=== PATIENT | female | born 1950 | race Caucasian/White ===

== ENCOUNTER 2021-01-14 07:18 | Day surgery (SDC) | payer MEDICARE ==
[2021-01-09 13:23] VITALS: BMI 33.9
[2021-01-14 07:52] VITALS: TEMP 97.7
[2021-01-14] MEDS ORDERED: LACTATED RINGERS 1,000 ML IV SCH (07:52)
[2021-01-14] MEDS ORDERED: LIDOCAINE 1% (10MG/ML) FOR IV START INTRADERMA PRN (07:52)
[2021-01-14 08:02] LABS: Glucose,Whole Blood 137 mg/dL (75-99)
[2021-01-14] MEDS ORDERED: LIDOCAINE 1% INJ 10MG/ML (20 ML MDV) ONE (08:25)
[2021-01-14] MEDS ORDERED: PROPOFOL 10 MG/ML 20 ML VIAL IV ONE (08:25)
--- NOTE | 2021-01-14 08:44 | P.PCN ---
Date of Procedure: 01/14/21 Procedure(s) Performed: BRIEF HISTORY: Patient is a 70-year-old, pleasant, white white female scheduled for an upper endoscopy as a part of evaluation of iron deficiency anemia.. Last colonoscopy was in 2019 at [facility] in [place] area was normal. The patient PROCEDURE PERFORMED: Esophagogastroduodenoscopy with biopsy and argon plasma coagulation. PREOPERATIVE DIAGNOSIS: Iron deficiency anemia negative colonoscopy 2 years. IV sedation per anesthesia. PROCEDURE: After informed consent was obtained, the patient was brought into the endoscopy unit. IV sedation was administered by Anesthesia under continuous monitoring. Initially the Olympus GIF-140 video endoscope was inserted into the mouth. Esophagus intubated without any difficulty. It was gradually advanced into the stomach and duodenum and carefully examined. The bulb and the second part of the duodenum appeared normal. Biopsies were done from the duodenum to rule out celiac disease. The scope at this time was withdrawn to the stomach, adequately insufflated with air, and upon careful examination, mucosa of the ant rum had linear areas of telangiectasia with active oozing consistent with gastric antral vascular ectasia. At this argon plasma coagulation was performed and most of the telangiectasia were coagulated with good hemostasis. Rest of the, body, cardia and the fundus appeared normal.there a few telangiectasia noted in the fundus of the stomach that was also coagulated with argon plasma. The scope was then withdrawn into the esophagus. The GE junction was located at 39 cm from the incisors. small hiatal hernia noted. The esophagus appeared normal. There were no erosions or ulcerations seen and the patient tolerated the procedure well. IMPRESSION: 1. Gastric antral vascular ectasia with oozing status post argon plasma coagulation as described above. 2. Small hiatal hernia. RECOMMENDATIONS: The findings of this examination were discussed with the patient as well as her family. She was advised to follow with the biopsy results. She will start on iron supplements daily. Monitor CBC periodically and she'll be seen in office in 4-6 weeks. Will consider repeat EGD with APC if she has recurrent anemia in the future..
[2021-01-14] MEDS ORDERED: IV FLUID CONTINUATION 750 ML IV ONE (08:46)
[2021-01-14 09:10] VITALS: BP 142/92; PULSE 61; RESP 20
== END 2021-01-14 09:20 | disposition home or self-care (01) ==
LOC: ORWHC2ENDO 07:18
PROVIDERS: ATTEND Internal Medicine Gastroenterology
DX: D50.9 Iron deficiency anemia, unspecified (principal); K44.9 Diaphragmatic hernia without obstruction or gangrene; K31.811 Angiodysplasia of stomach and duodenum with bleeding; I11.0 Hypertensive heart disease with heart failure; I50.9 Heart failure, unspecified; E78.5 Hyperlipidemia, unspecified; E11.9 Type 2 diabetes mellitus without complications; F41.9 Anxiety disorder, unspecified; F32.9 Major depressive disorder, single episode, unspecified; K21.9 Gastro-esophageal reflux disease without esophagitis; Z79.899 Other long term (current) drug therapy; Z79.4 Long term (current) use of insulin; Z91.048 Other nonmedicinal substance allergy status
CPT/HCPCS: 88305; 43239; 43255; J2001; J2704

== ENCOUNTER → 2021-12-15 | Outpatient (CLI) | payer MEDICARE ==
--- NOTE | 2021-12-15 14:57 | P.SLEEP ---
History of Present Illness H&P Date: 12/15/21 This is a pleasant 71-year-old female patient was referred to me for evaluation of sleep apnea. This patient has noted to be excessively sleepy and she's been sleeping several hours and a daily basis. For instance, on a 24-hour period, the patient is sleeping somewhat between 12 and 16 hours. This was quite concerning and the patient was referred to me for sleep apnea evaluation. Note that the patient has multiple medical problems and comorbidities which obviously could contribute to her being somnolent and sleepy. Nevertheless, she also has features to suggest obstructive sleep apnea. She is obese and she cares a BMI of 37.7. She has loud snoring, and she has been told to stop breathing at night. She has excessive daytime fatigue and sleepiness. At times, she wakes up choking and gasping for air. She also has occasional nighttime heartburn. The patient is going to bed at around 6:30 PM and she's getting out of bed at around 5:30 AM. During the day, she is taking naps several of them and those ranged between 20 and 30 minutes. It takes a few minutes to fall asleep. She has no difficulties in sleep initiation. She wakes up at least 4-5 times in the middle of the night to use the bathroom. She prefers to sleep on her side. Shehas no sleep paralysis, no hallucinations, no cataplexy. She watches television in her bedroom. She drinks one cup of coffee in the morning. No alcoholism. Her weight has remained stable over the years without any significant recent weight gain or weight loss. Note that the patient was recently hospitalized to [facility] with severe anemia. She was found to have iron deficiency and GI bleeding. She was given IV iron and currently she is on oral iron supplements. She has no significant acidosis and lower extremities. No numbness or tingling involving the lower extremities. She has fatigue and she feels tired at all times. She has exertional dyspnea. No angina. No palpitations. No cardiac arrhythmias. No history of any CVA. No personal history of obstructive sleep apnea. She is legally blind and she is not driving and she is living with her . Review of Systems Constitutional: Reports daytime sleepiness, Reports fatigue Eyes: right blurred vision, right decreased vision, right loss of vision, denies bulging eye Ears: deny: decreased hearing, ear discharge, earache, tinnitus Ears, nose, mouth and throat: Reports as per HPI Breasts: absent: as per HPI, change in shape, gynecomastia, masses, nipple discharge, pain, skin changes, swelling Cardiovascular: Reports decreased exercise tolerance, Reports dyspnea on exertion Respiratory: Reports dyspnea Gastrointestinal: Reports as per HPI Genitourinary: Reports as per HPI Menstruation: Reports as per HPI Musculoskeletal: Reports as per HPI Musculoskeletal: absent: ankle pain, ankle stiffness, ankle swelling Integumentary: Reports as per HPI Neurological: Reports weakness Psychiatric: Reports depression Endocrine: Reports as per HPI, Reports excessive thirst, Reports high blood sugars Hematologic/Lymphatic: Reports as per HPI Allergic/Immunologic: Reports as per HPI Past Medical History Past Medical History: Heart Failure, Diabetes Mellitus, GERD/Reflux, Hyperlipidemia, Hypertension, Renal Disease Additional Past Medical History / Comment(s): diabetes mellitus type 2, chronic stage III kidney disease, hypertension, hyperlipidemia, acid reflux, obesity, chronic anemia attributed to iron deficiency anemia and previous history of GI bleed, colonic polyps, migraines, glaucoma the patient is legally blind, depression, history of kidney stones History of Any Multi-Drug Resistant Organisms: None Reported Past Surgical History: Hysterectomy, Tonsillectomy Additional Past Surgical History / Comment(s): Colonoscopy, EGD Past Anesthesia/Blood Transfusion Reactions: No Reported Reaction Smoking Status: Former smoker - Past Family History Mother Family Medical History: Hypertension (her father also had heart disease) Medications and Allergies Home Medications Medication Instructions Recorded Confirmed Type Acetaminophen [Tylenol Extra 500 - 1,000 mg PO DIRECTED PRN 01/09/21 01/14/21 History Strength] Atorvastatin [Lipitor] 40 mg PO DAILY 01/09/21 01/14/21 History Brimonidine Tartrate [Alphagan P 2 drops RIGHT EYE BID 01/09/21 01/14/21 History 0.2% Ophth Soln] Ferrous Sulfate [Feosol] 325 mg PO BID 01/09/21 01/14/21 History Furosemide [Lasix] 40 mg PO BID 01/09/21 01/14/21 History Insulin Glargine,Hum.rec.anlog 45 unit SQ HS 01/09/21 01/14/21 History [Lantus Solostar] Latanoprost Ophth [Xalatan 0.005%] 1 drops RIGHT EYE HS 01/09/21 01/14/21 History Losartan [Cozaar] 25 mg PO BID 01/09/21 01/14/21 History Pantoprazole Sodium [Protonix] 40 mg PO BID 01/09/21 01/14/21 History Timolol 0.5% Ophth Soln [Timoptic 1 drop RIGHT EYE BID 01/09/21 01/14/21 History 0.5% Ophth Soln] lamoTRIgine [LaMICtal] 200 mg PO BID 01/09/21 01/14/21 History Allergies Allergy/AdvReac Type Severity Reaction Status Date / Time Iodine and Iodide Containing Allergy Anaphylaxis Verified 01/14/21 07:52 Produc Physical Exam BP is 160/94, pulse is 82, respirations 20, temperature 97.6, oxygen saturations 96% on room air oxygen. The patient's upper scores at 15. Body mass index is 37.7. Height is 5 feet and 4 inches and the weight is 225 pounds. Neck circumference is 16.5 inches. Gen. appearance, the patient is obese, comfortable likely distress.Head exam was generally normal. There was no scleral icterus or corneal arcus. Mucous membranes were moist.Neck was supple and without jugular venous distension, thyromegaly, or carotid bruits. Carotids were easily palpable bilaterally. There was no adenopathy. The patient has denture and the patient has Mallampati class IV.Lungs were clear to auscultation and percussion, and with normal diaphragmatic excursion. No wheezes or rales were noted. Cardiac exam revealed the PMI to be normally situated and sized. The rhythm was regular and no extrasystoles were noted during several minutes of auscultation. The first and second heart sounds were normal and physiologic splitting of the second heart sound was noted. There were no murmurs, rubs, clicks, or gallops.Abdominal exam revealed normal bowel sounds. The abdomen was soft, non-tender, and without masses, organomegaly, or appreciable enlargement of the abdominal aorta.Examination of the extremities revealed easily palpable radial, femoral and pedal pulses. There was no cyanosis, clubbing or edema. Examination of the skin revealed no evidence of significant rashes, suspicious appearing nevi or other concerning lesions.Neurologically, the patient is awake and alert and the patient does not have any focal neurological deficit. Cranial nerves are essentially intact. Assessment and Plan Plan: 1 chronic hypersomnia, Pennington score of 15. Consider underlying sleep apnea as the patient has snoring and witnessed apneas and anatomic features to support the diagnosis. Nevertheless, he does have multiple other comorbidities contributing to her fatigue and sleepiness including chronic iron deficiency, stage III kidney disease, and depression. A sleep study will be needed throughout the possibility of an underlying sleep breathing disorder 2 obesity, body mass index of 37.7 3 diabetes mellitus type 2 4 chronic stage III kidney disease 5 hypertension 6 hyperlipidemia 7 chronic anemia 8 previous history of GI bleed and colonic polyps 9 glucoma the patient is legally blind 10 history of herpes zoster 11 gout 13 chronic depression/bipolar disorder 14 acid reflux Plan Proceed with screening polysomnogram looking for any significant sleep apnea. Make sure the iron deficiency anemia is adequately treated as iron deficiency can cause orthostatics were normal. Bowel movements and significant sleep fragmentation. The patient started on oral iron supplements. Hemoglobin needs to be monitored.\ Control blood sugar on the patient states that her blood sugars under adequate control for now she has no symptoms of neuropathy Encourage weight loss May increase intake of caffeine to improve daytime alertness We'll continue to follow. Sleep Note - Sleep Note Sleep Note: Temperature: Pulse Rate: Respiratory Rate: Blood Pressure: SpO2: Height: Weight: BMI: Neck Circumference:
== END ==
LOC: SLEEP 13:49
PROVIDERS: ATTEND Internal Medicine Critical Care Medicine
DX: G47.10 Hypersomnia, unspecified (principal); E61.1 Iron deficiency; E11.22 Type 2 diabetes mellitus with diabetic chronic kidney disease; I12.9 Hypertensive chronic kidney disease with stage 1 through stage 4 chronic kidney disease, or unspecified chronic kidney disease; N18.30 Chronic kidney disease, stage 3 unspecified; E66.9 Obesity, unspecified; Z68.37 Body mass index [BMI] 37.0-37.9, adult; E78.5 Hyperlipidemia, unspecified; D64.9 Anemia, unspecified; Z86.010 Personal history of colon polyps; Z87.19 Personal history of other diseases of the digestive system; H40.9 Unspecified glaucoma; H54.8 Legal blindness, as defined in USA; Z86.19 Personal history of other infectious and parasitic diseases; M10.9 Gout, unspecified; F31.9 Bipolar disorder, unspecified; K21.9 Gastro-esophageal reflux disease without esophagitis; Z91.041 Radiographic dye allergy status
CPT/HCPCS: 99211

== ENCOUNTER 2022-01-06 08:29 | Day surgery (SDC) | payer MEDICARE ==
[2022-01-05 08:21] VITALS: BMI 35.3
[~2022-01-06 08:29] MED LIST: LACTATED RINGERS 1,000 ML IV SCH; LIDOCAINE 1% (10MG/ML) FOR IV START INTRADERMA PRN
[2022-01-06 09:38] VITALS: TEMP 96.6
[2022-01-06 09:42] LABS: Glucose,Whole Blood 83 mg/dL (75-99)
[2022-01-06] MEDS ORDERED: LIDOCAINE 2% INJ 20 MG/ML (2 ML VIAL) ONE (09:48)
[2022-01-06] MEDS ORDERED: PROPOFOL 10 MG/ML 20 ML VIAL IV ONE (09:48)
--- NOTE | 2022-01-06 10:00 | P.PCN ---
Date of Procedure: 01/06/22 Procedure(s) Performed: BRIEF HISTORY: Patient is a 71-year-old, pleasant, white female scheduled for an upper endoscopy as a part of evaluation of recurrent iron deficiency anemia. She has history of gastric antral vascular ectasia and underwent an upper endoscopy with argon plasma coagulation in January 2021. Recently was noted to have anemia with a hemoglobin of 7.7 g/dL and intermittent dark colored stools.. PROCEDURE PERFORMED: Esophagogastroduodenoscopy with argon plasma coagulation. PREOPERATIVE DIAGNOSIS:/GI bleed/history of GAVE. IV sedation per anesthesia. PROCEDURE: After informed consent was obtained, the patient was brought into the endoscopy unit. IV sedation was administered by Anesthesia under continuous monitoring. Initially the Olympus GIF-140 video endoscope was inserted into the mouth. Esophagus intubated without any difficulty. It was gradually advanced into the stomach and duodenum and carefully examined. The bulb and the second part of the duodenum appeared normal. The scope at this time was withdrawn to the stomach, adequately insufflated with air, and upon careful examination, mucosa of the antrum had linear areas of gastric antral vascular ectasia with no active bleeding. Argon plasma coagulation was performed. Mucosa of the, body,and the fundus appeared normal. In the cardia of the stomach there was scattered angiectasia identified which were also coagulated with argon plasma. The scope was then withdrawn into the esophagus. The GE junction was located at 39 cm from the incisors. The esophagus appeared normal. There were no erosions or ulcerations seen and the patient tolerated the procedure well. IMPRESSION: 1. Gastric antral vascular the cecum status post argon plasma coagulation as described above.. 2. Few angiectasia noted in the cardia of the stomach status post argon plasma coagulation. RECOMMENDATIONS: The findings of this examination were discussed with the patient as her family. She will continue with iron supplements and follow CBC periodically..
[2022-01-06 10:20] VITALS: RESP 20
[2022-01-06 10:43] VITALS: BP 151/73; PULSE 64
== END 2022-01-06 10:40 | disposition home or self-care (01) ==
LOC: ORWHC2ENDO 08:29
PROVIDERS: ATTEND Internal Medicine Gastroenterology
DX: K31.819 Angiodysplasia of stomach and duodenum without bleeding (principal); D50.9 Iron deficiency anemia, unspecified; Z88.8 Allergy status to other drugs, medicaments and biological substances; I11.0 Hypertensive heart disease with heart failure; I50.9 Heart failure, unspecified; E78.5 Hyperlipidemia, unspecified; N28.9 Disorder of kidney and ureter, unspecified; F41.9 Anxiety disorder, unspecified; F32.A Depression, unspecified; H40.9 Unspecified glaucoma; Z79.899 Other long term (current) drug therapy; Z79.84 Long term (current) use of oral hypoglycemic drugs; Z79.82 Long term (current) use of aspirin
CPT/HCPCS: 43255; 43270; J2704; J2001

== ENCOUNTER → 2022-05-03 | Outpatient (CLI) | payer MEDICARE ==
--- NOTE | 2022-05-03 10:46 | FL ---
EXAMINATION TYPE: FL sniff test without CXR DATE OF EXAM: 05/03/2022 Comparison: Radiograph 04/16/2022 Clinical History: 72 year-old female shortness of breath, R06.09 DYSPNEA Total fluoroscopy time: 1 minute 22 seconds. Total images: 18. Findings: Real time fluoroscopy of the diaphragm during quiet breathing, deep inspiration and expiration, and s niffing maneuver. There is asymmetric elevation of the left hemidiaphragm. During quiet breathing and deep breathing, there is slight sluggish movement of the left hemidiaphrag m. Appropriate direction of flow though with a diminished excursion. With sniffing maneuver, initially is either no movement or slight paradoxical movement followed by so me concordant inferior movement, suspected due to chest wall augmentation. Impression: Findings compatible with left hemidiaphragmatic paralysis. Correlate as to etiology.
== END | disposition home or self-care (01) ==
LOC: RADUSWWP 09:13
PROVIDERS: ATTEND Internal Medicine
DX: R06.09 Other forms of dyspnea (principal)
CPT/HCPCS: 76000